=== PATIENT | female | born 1970 ===

== ENCOUNTER 2018-11-03 13:58 | Outpatient (CLI) | payer OTHER ==
--- NOTE | 2018-11-03 19:11 | XRAY Report ---
Reason: BACK PAIN, LUMBAR W/ RADICULOPATHY Procedure Date: 11/03/2018 Accession Number: [id number] / [id number] Procedure: XRS - Lumbar Spine Complete CPT Code: FULL RESULT: EXAM: LUMBOSACRAL SPINE RADIOGRAPHY EXAM DATE: 11/03/2018 02:27 PM HISTORY: BACK PAIN, LUMBAR W/ RADICULOPATHY. TECHNIQUE: AP, bilateral obliques, lateral and lateral lumbosacral 5 view exam COMPARISON: None. FINDINGS: Normal alignment. No fracture identified. Disc spaces are preserved. Unremarkable facets. IMPRESSION: Unremarkable lumbar spine radiography. [facility]
== END 2018-11-03 13:59 | disposition home or self-care (01) ==
LOC: DI.S 13:58
PROVIDERS: ATTEND Physician Assistant Medical
DX: M54.16 Radiculopathy, lumbar region (principal)
CPT/HCPCS: 72110

== ENCOUNTER 2023-05-27 09:48 | Outpatient (CLI) | payer OTHER ==
--- NOTE | 2023-05-27 13:49 | Ultrasound Report ---
PROCEDURE: Chest INDICATIONS: MASS TECHNIQUE: Grayscale and color Doppler sonographic images of the right upper posterior thorax soft tissues was p erformed. COMPARISON: None. FINDINGS: In the area of concern at the right back, there is a circumscribed, oval, mildly hypoechoic soft tiss ue mass, isoechoic to adjacent fat tissue and perpendicular to the skin surface. This measures 5.5 x 0.9 x 3.6 cm. Color Doppler imaging demonstrates no internal vascular flow. There is no surrounding e gary or posterior shadow. IMPRESSION: Subcutaneous fatty mass in the area of concern is consistent with a lipoma. Reviewed by: Wendy Pacheco MD on 05/27/2023 1:48 PM PDT Approved by: Wendy Pacheco MD on 05/27/2023 1:48 PM PDT Station ID: [id number]
== END 2023-05-27 09:49 | disposition home or self-care (01) ==
LOC: DI 09:48
PROVIDERS: ATTEND Surgery
DX: R22.2 Localized swelling, mass and lump, trunk (principal)